=== PATIENT | male | born 1975 | race Caucasian/White ===

== ENCOUNTER 2017-04-19 00:01 | Emergency (ER) | payer BC ==
[2017-04-19 00:18] VITALS: BP 130/95
--- NOTE | 2017-04-19 00:43 | EDM.PDOC ---
ED HPI GENERAL MEDICAL PROBLEM - General Chief Complaint: General Stated Complaint: medical clearance Time Seen by Provider: 04/19/17 00:35 Source of Information: Reports: Patient, Police, Other (department of natural resources officer) History Limitations: Reports: No Limitations, Intoxication - History of Present Illness INITIAL COMMENTS - FREE TEXT/NARRATIVE: Patient is a 42-year-old gentleman who presents to the emergency department this morning via local authorities. Patient's business practices officer is also present. Patient said to have been drinking vodka this evening and took approximately 6 tramadol and 6 Gabapentin pills because of family dynamics and being upset. Taking medicine was witnessed by his mother. Patient states that he has chronic back pain and just wants to go to sleep. Denies trying to kill self or intent to hurt others. Patient does have a history of depression and was seen by primary care provider on Wednesday. He is well known to business practices officer and she states that he has a job interview in the morning and was acting appropriate and in good spirits on Wednesday. After discussing the situation with the patient he states he just wants to go to sleep and wasn't trying to kill himself. Lab work will be obtained and discussion with police officers and business practices officer will determine if patient will be allowed to go home. His parents are presently at the residence. Onset: Today Duration: Hour(s): Severity: Mild Context: Denies: Trauma Associated Symptoms: Reports: No Other Symptoms - Related Data Allergies Allergy/AdvReac Type Severity Reaction Status Date / Time No Known Drug Allergies Allergy Cannot Verified 04/19/17 00:15 Remember Home Meds: Home Meds Sertraline [Zoloft] 50 mg PO DAILY 03/02/16 [History] predniSONE [Prednisone] 10 mg PO DAILY 03/02/16 [History] traMADol HCl [Tramadol HCl] 100 mg PO Q6H PRN 03/02/16 [History] traZODone 50 mg PO BEDTIME 03/02/16 [History] Gabapentin [Neurontin] 300 mg PO TID 04/19/17 [History] busPIRone [Buspar] 10 mg PO TID 04/19/17 [History] Past Medical History Musculoskeletal History: Reports: Arthritis, Fracture Psychiatric History: Reports: Depression, Suicidal Ideation Hematologic History: 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, Other (See Below) Other Hematologic History: Von [employer]an's - Infectious Disease History Infectious Disease History: Reports: Chicken Pox - Past Surgical History HEENT Surgical History: Reports: Other (See Below) Musculoskeletal Surgical History: Reports: Other (See Below) Social & Family History - Tobacco Use Smoking Status *Q: Unknown Ever Smoked Years of Tobacco use: 30 Packs/Tins Daily: 0.5 Second Hand Smoke Exposure: No - Caffeine Use Caffeine Use: Reports: Coffee - Alcohol Use Days Per Week of Alcohol Use: 7 Number of Drinks Per Day: 10 Total Drinks Per Week: 70 - Recreational Drug Use Recreational Drug Use: No ED ROS GENERAL - Review of Systems Review Of Systems: ROS reveals no pertinent complaints other than HPI. Constitutional: Reports: No Symptoms HEENT: Reports: No Symptoms Respiratory: Reports: No Symptoms Cardiovascular: Reports: No Symptoms Endocrine: Reports: No Symptoms GI/Abdominal: Reports: No Symptoms : Reports: No Symptoms Musculoskeletal: Reports: Back Pain (Chronic nature) Skin: Reports: No Symptoms Neurological: Reports: Other (Mild intoxication. He is not combative, and follows instructions.) Psychiatric: Reports: Anxiety, Depression Hematologic/Lymphatic: Reports: No Symptoms Immunologic: Reports: No Symptoms ED EXAM, GENERAL - Physical Exam Exam: See Below Exam Limited By: Intoxication (Mild, follows commands, not combative) General Appearance: Alert, WD/WN, No Apparent Distress Eye Exam: Bilateral Eye: Normal Inspection Nose: Normal Inspection, Normal Mucosa, No Blood Throat/Mouth: Normal Inspection, Normal Oropharynx, No Airway Compromise Head: Atraumatic, Normocephalic Neck: Normal Inspection, Supple, Non-Tender Respiratory/Chest: No Respiratory Distress, Lungs Clear, Normal Breath Sounds, No Accessory Muscle Use, Chest Non-Tender Cardiovascular: No Murmur, Tachycardia GI/Abdominal: Normal Bowel Sounds, Soft, Non-Tender Back Exam: Paraspinal Tenderness. No: CVA Tenderness (L), CVA Tenderness (R) Extremities: Normal Inspection, No Pedal Edema Neurological: Alert, Oriented, Normal Cognition Psychiatric: Anxious Skin Exam: Warm, Dry, Intact, Normal Color, No Rash Lymphatic: No Adenopathy Course - Vital Signs Last Recorded V/S: Last Vital Signs Temp 98.0 F 04/19/17 00:17 Pulse 118 H 04/19/17 00:17 Resp 22 H 04/19/17 00:17 BP 130/95 H 04/19/17 00:17 Pulse Ox 100 04/19/17 00:17 - Orders/Labs/Meds Orders: Active Orders 24 hr Category Date Time Status DRUG SCREEN, URINE [URCHEM] Stat Lab 04/19/17 00:36 Ordered Labs: Laboratory Tests 04/19/17 04/19/17 Range/Units 00:36 00:36 WBC 4.9 L (5.0-10.0) 10^3/uL RBC 5.67 (4.50-6.00) 10^6/uL Hgb 16.3 (13.0-17.0) g/dL Hct 50.2 (40.0-52.0) % MCV 88.4 D (82.0-92.0) fL MCH 28.7 (27.0-31.0) pg MCHC 32.5 (32.0-36.0) g/dL RDW 13.6 (11.5-14.5) % Plt Count 140 L (150-300) 10^3/uL MPV 10.9 H (7.4-10.4) fL Neut % (Auto) 53.8 (50.0-70.0) % Lymph % (Auto) 34.2 (20.0-40.0) % [place] % (Auto) 10.0 H (2.0-8.0) % Eos % (Auto) 1.1 (1.0-3.0) % Baso % (Auto) 0.9 (0.0-1.0) % Neut # (Auto) 2.6 (2.5-7.0) 10^3/uL Lymph # (Auto) 1.7 (1.0-4.0) 10^3/uL [place] # (Auto) 0.5 (0.1-0.8) 10^3/uL Eos # (Auto) 0.1 (0.1-0.3) 10^3/uL Baso # (Auto) 0.0 (0.0-0.1) 10^3/uL Sodium 143 (136-145) mmol/L Potassium 4.1 (3.3-5.3) mmol/L Chloride 105 (98-115) mmol/L Carbon Dioxide 27.8 (21.0-32.0) mmol/L BUN 7 (6-25) mg/dL Creatinine 0.92 (0.51-1.17) mg/dL Est Cr Clr Drug Dosing 110.27 mL/min Estimated GFR (MDRD) > 60 mL/min Glucose 85 (70-110) mg/dL Calcium 8.6 L (8.7-10.3) mg/dL Total Bilirubin 0.3 (0.2-1.0) mg/dL AST 111 H (15-37) U/L ALT 127 H (12-78) U/L Alkaline Phosphatase 64 (46-116) IU/L Total Protein 8.0 (6.4-8.2) g/dL Albumin 4.11 (3.00-4.80) g/dL Ethyl Alcohol 273 H* (0-3) mg/dL - Re-Assessments/Exams Free Text/Narrative Re-Assessment/Exam: 04/19/17 01:22 Patient afebrile, nontoxic appearing, vital signs stable, acting appropriately, noncombative, follows instructions. After lengthy discussion with local authorities, and business practices officer, it was decided that a psych facility would not be possible at this time patient as as denies intent to hurt himself and patient would be better served being at home with his parents. Parents are transporting patient from emergency room home. Departure - Departure Time of Disposition: 01:26 Disposition: Home, Self-Care 01 Condition: Good Clinical Impression: Intoxication Depression Qualifiers: Depression Type: unspecified Qualified Code(s): F32.9 - Major depressive disorder, single episode, unspecified - Discharge Information Instructions: Persistent Depressive Disorder, Adult, [id number], Alcohol Intoxication, [id number] Forms: ED Department Discharge Additional Instructions: Follow-up at [facility] tomorrow. Return to emergency department sooner if symptoms continue or worsen - My Orders Last 24 Hours: My Active Orders 04/19/17 00:36 DRUG SCREEN, URINE [URCHEM] Stat - Assessment/Plan Last 24 Hours: My Active Orders 04/19/17 00:36 DRUG SCREEN, URINE [URCHEM] Stat
[2017-04-19 01:14] LABS: CHLORIDE,CL 105 mmol/L (98-115); SODIUM,NA 143 mmol/L (136-145)
== END 2017-04-19 01:25 | disposition home or self-care (01) ==
LOC: KA.ED 00:01
DX: F10.129 Alcohol abuse with intoxication, unspecified (principal); F32.9 Major depressive disorder, single episode, unspecified; Z79.899 Other long term (current) drug therapy; Y90.8 Blood alcohol level of 240 mg/100 ml or more
CPT/HCPCS: 36415; 80053; 80305; 85025; 99284; G0480

== ENCOUNTER 2018-02-16 14:42 | Emergency (ER) | payer SELFPAY ==
[2018-02-16 14:47] VITALS: BP 144/99
--- NOTE | 2018-02-16 15:17 | EDM.PDOCBH ---
ED HPI GENERAL MEDICAL PROBLEM - General Chief Complaint: Drug or Alcohol Abuse Stated Complaint: MENTAL EVALUATION Time Seen by Provider: 02/16/18 15:01 Source of Information: Reports: Patient, Police, Other (health promotion officer) History Limitations: Reports: No Limitations - History of Present Illness INITIAL COMMENTS - FREE TEXT/NARRATIVE: Police bring patient for medical clearance prior to placement at [facility] for suicide intent and alcohol intoxication. He has had recent DUIs. His health promotion officer told me he threatened to drink himself to and also told his girlfriend he would kill her. He was caught driving 45 minutes earlier with .25 BA. Patient says he has von [employer] but no other medical problems. - Related Data Allergies Allergy/AdvReac Type Severity Reaction Status Date / Time blood thinners Allergy Other Uncoded 02/16/18 14:50 Home Meds: Home Meds predniSONE [Prednisone] 10 mg PO DAILY 03/02/16 [History] busPIRone [Buspar] 15 mg PO TID 04/19/17 [History] Gabapentin [Neurontin] 100 mg PO TID 02/16/18 [History] Naltrexone 50 mg PO DAILY 02/16/18 [History] Past Medical History Musculoskeletal History: Reports: Arthritis, Fracture Psychiatric History: Reports: Depression, Suicidal Ideation Hematologic History: 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, Other (See Below) Other Hematologic History: Von Willibran's - Infectious Disease History Infectious Disease History: Reports: Chicken Pox - Past Surgical History HEENT Surgical History: Reports: Other (See Below) GI Surgical History: Reports: Colonoscopy Musculoskeletal Surgical History: Reports: Other (See Below) Social & Family History - Caffeine Use Caffeine Use: Reports: Coffee ED ROS GENERAL - Review of Systems Review Of Systems: See Below Constitutional: Denies: Fever, Chills, Weakness HEENT: Reports: No Symptoms Respiratory: Reports: No Symptoms Cardiovascular: Reports: No Symptoms Endocrine: Reports: No Symptoms GI/Abdominal: Reports: No Symptoms : Reports: No Symptoms Musculoskeletal: Reports: No Symptoms Skin: Reports: No Symptoms Neurological: Reports: No Symptoms Psychiatric: Reports: Homicidal Ideation, Suicidal Ideation Hematologic/Lymphatic: Reports: Anemia (usually low hemoglobin and platelets.) ED EXAM, BEHAVIORAL HEALTH - Physical Exam Exam: See Below Exam Limited By: No Limitations General Appearance: Alert, WD/WN, No Apparent Distress, Anxious Eye Exam: Bilateral Eye: EOMI, Normal Inspection, PERRL Ears: Normal External Exam, Normal Canal, Hearing Grossly Normal, Normal TMs Nose: Normal Inspection, No Blood Throat/Mouth: Normal Inspection, Normal Lips, Normal Teeth, Normal Gums, Normal Oropharynx, Normal Voice, No Airway Compromise Head: Atraumatic, Normocephalic Neck: Normal Inspection, Full Range of Motion Respiratory/Chest: No Respiratory Distress, Lungs Clear, Normal Breath Sounds, No Accessory Muscle Use Cardiovascular: Regular Rate, Rhythm, No Murmur GI/Abdominal: Soft, Non-Tender, No Organomegaly, No Distention Back Exam: No: CVA Tenderness (L), CVA Tenderness (R) Extremities: Normal Inspection, Normal Range of Motion Neurological: Alert, Normal Mood/Affect, Normal Cognition, No Motor/Sensory Deficits Psychiatric: Alert, Normal Cognition, Oriented, Agitated Skin Exam: Warm, Dry, Intact, Normal color, No rash COURSE, BEHAVIORAL HEALTH COMP - Course Vital Signs: Last Vital Signs Temp 98.4 F 02/16/18 14:46 Pulse 68 02/16/18 14:46 Resp 16 02/16/18 14:46 BP 144/99 H 02/16/18 14:46 Pulse Ox 99 02/16/18 14:46 Orders, Labs, Meds: Laboratory Tests 02/16/18 02/16/18 02/16/18 Range/Units 14:55 14:55 15:03 WBC 6.91 (5.00-10.00) 10^3/uL RBC 5.42 (4.50-6.00) 10^6/uL Hgb 16.6 (13.0-17.0) g/dL Hct 48.3 (40.0-52.0) % MCV 89.1 (82.0-92.0) fL MCH 30.6 (27.0-31.0) pg MCHC 34.4 (32.0-36.0) g/dL RDW 14.4 (11.5-14.5) % Plt Count 187 (150-400) 10^3/uL MPV 12.3 H (7.4-10.4) fL Immature Gran % (Auto) 0.1 (0.0-5.0) % Neut % (Auto) 67.9 (50.0-70.0) % Lymph % (Auto) 22.9 (20.0-40.0) % [place] % (Auto) 6.7 (2.0-8.0) % Eos % (Auto) 1.0 (1.0-3.0) % Baso % (Auto) 1.4 H (0.0-1.0) % Immature Gran # (Auto) 0.01 (0.00-0.50) 10^3/uL Neut # (Auto) 4.69 (2.50-7.00) 10^3/uL Lymph # (Auto) 1.58 (1.00-4.00) 10^3/uL [place] # (Auto) 0.46 (0.10-0.80) 10^3/uL Eos # (Auto) 0.07 L (0.10-0.30) 10^3/uL Baso # (Auto) 0.10 (0.00-0.10) 10^3/uL Sodium 143 (136-145) mmol/L Potassium 3.6 (3.3-5.3) mmol/L Chloride 102 (98-115) mmol/L Carbon Dioxide 22.9 (21.0-32.0) mmol/L Anion Gap 21.7 H (5-15) mmol/L BUN 9 (6-25) mg/dL Creatinine 0.96 (0.51-1.17) mg/dL Est Cr Clr Drug Dosing 105.67 mL/min Estimated GFR (MDRD) > 60 mL/min Glucose 108 H (75 - 99) mg/dL Calcium 8.8 (8.7-10.3) mg/dL Urine Opiates Screen Negative (NEGATIVE) Ur Oxycodone Screen Negative (NEGATIVE) Urine Methadone Screen Negative (NEGATIVE) Ur Propoxyphene Screen Negative (NEGATIVE) Ur Barbiturates Screen Negative (NEGATIVE) Ur Tricyclics Screen Negative (NEGATIVE) Ur Phencyclidine Scrn Negative (NEGATIVE) Ur Amphetamine Screen Negative (NEGATIVE) U Methamphetamines Scrn Negative (NEGATIVE) U Benzodiazepines Scrn Negative (NEGATIVE) U Cocaine Metab Screen Negative (NEGATIVE) U Marijuana (THC) Screen Negative (NEGATIVE) Ethyl Alcohol 321 H* (NONE DETECTED) mg/dL Medical Clearance: 02/16/18 15:31 Medically clear. Departure - Departure Time of Disposition: 15:29 Disposition: DC/Tfer to Psych Hosp/Unit 65 Condition: Good Clinical Impression: Suicidal intent, Homicidal ideation Alcohol intoxication Qualifiers: Complication of substance-induced condition: uncomplicated Qualified Code(s): F10.920 - Alcohol use, unspecified with intoxication, uncomplicated - Discharge Information Referrals: Leola Tate, REINSURANCE ACCOUNTANT [Primary Care Provider] -
[2018-02-16 15:25] LABS: ANION GAP 21.7 mmol/L (5-15); CHLORIDE,CL 102 mmol/L (98-115); SODIUM,NA 143 mmol/L (136-145)
== END 2018-02-16 15:32 ==
LOC: KA.ED 14:42
DX: R45.850 Homicidal ideations (principal); F10.120 Alcohol abuse with intoxication, uncomplicated; Y90.8 Blood alcohol level of 240 mg/100 ml or more; Z88.8 Allergy status to other drugs, medicaments and biological substances; Z79.899 Other long term (current) drug therapy
CPT/HCPCS: 36415; 80048; 80305-QW; 85025; 99283; 99284; G0480